=== PATIENT | female | born 1985 | race Caucasian/White ===

== ENCOUNTER 2021-05-04 08:56 | Outpatient (REF) | payer BC, SELFPAY ==
[2021-05-04 10:06] LABS: COVID-19 Test Negative (Negative)
== END 2021-05-04 08:57 | disposition home or self-care (01) ==
LOC: HO.LAB 08:56
PROVIDERS: Visit Provider Internal Medicine
DX: Z20.822 Contact with and (suspected) exposure to COVID-19 (principal)
CPT/HCPCS: 36415; 87635; C9803

== ENCOUNTER 2024-08-07 01:01 | Emergency (ER) | payer OTHER, SELFPAY ==
[2024-08-07 01:08] VITALS: BP 123/85; PULSE 73; RESP 18; TEMP 36.4; O2SAT 100; BMI 37.8
--- NOTE | 2024-08-07 01:49 | ED_ITS ---
HPI - Dental/Oral General Chief complaint: Dental/Oral Stated complaint: tooth ache Time Seen by Provider: 08/07/24 01:40 Source: patient Mode of arrival: ambulatory Limitations: no limitations History of Present Illness ED Provider: Dr. Ayana Wahl HPI Narrative: Patient comes to the emergency room complaining of dental pain in the maxillary aspect on the left. Patient states that she has a root canal pending in 2 days from now. Patient states that she has been taking ibuprofen, Tylenol and Augmentin for 3 days without any relief. Patient denies fever chills Related Data Previous Rx's ?Medication ?Instructions ?Recorded clindamycin HCl 150 mg capsule 150 mg PO TID 10 days #30 caps 08/07/24 ketorolac 10 mg tablet 10 mg PO Q8H #12 tabs 08/07/24 Allergies Allergy/AdvReac Type Severity Reaction Status Date / Time dicloxacillin [Dicloxacillin] Allergy Mild RASH Verified 08/07/24 01:10 Penicillins Allergy Mild RASH Verified 08/07/24 01:10 Review of Systems Review of Systems: Constitutional : No Weight loss, No Fever, No Chills, No Night Sweats, No Fatigue, No Malaise ENT/Mouth : complaining of dental pain of the left upper/ maxillary side. No Hearing loss, No Ear Pain, No Nasal Congestion, No Sinus Pain, No Hoarseness, No sore throat, No Rhinorrhea, No Swallowing Difficulty Eyes: No Eye Pain, No Swelling, No Redness, No Foreign Body, No Discharge, No Vision Changes Cardiovascular : No Chest Pain, No SOB, No Dyspnea on Exertion, No Orthopnea, No Edema, No Palpitations Respiratory : No Cough, No Sputum, No Wheezing, No Smoke Exposure, No Dyspnea Gastrointestinal : No Nausea, No Vomiting, No Diarrhea, No Constipation, No abdominal Pain, No Hematochezia, No Melena Genitourinary : no irregular bleeding, No Dysuria, No Urinary Frequency, No Hematuria, No Urinary Incontinence, No Urgency, No Flank Pain, No Urinary Flow Changes, No Hesitancy Musculoskeletal : No joint pain, No Myalgias, No Joint Swelling Skin : No Skin Lesions, No rash Neuro : No Weakness, No Numbness, No Paresthesias, No Loss of Consciousness, No Dizziness, No Headache Psych : No Anxiety/Panic, No Depression, No SI/HI/AH/VH, No Social Issues, Heme/Lymph: No Bruising, No Bleeding,No Lymphadenopathy Endocrine : No Polyuria, No Polydipsia, No Temperature Intolerance [facility] Social History Social History Advance Directives: No Advance Directives Information Provided: Yes Do you have a plan to hurt others: No Plan Physical Exam Vital Signs: Vital Signs: Last Vital Signs Temp 97.6 F 08/07/24 01:08 Pulse 73 08/07/24 01:08 Resp 18 08/07/24 01:08 BP 123/85 08/07/24 01:08 Pulse Ox 100 08/07/24 01:08 O2 Del Method Room Air 08/07/24 01:08 BMI result Body Mass Index 37.8 Const: Other: Appearance: Alert. Oriented X3. No acute distress. Eyes: Pupils equal, round and reactive to light. ENT: Pharynx normal. Poor dentition on the maxillary right and left side in the molars, no obvious abscesses, gingivitis noticed bilaterally Neck: Normal inspection. Neck supple. No lymph nodes noted. No crepitus CVS: Normal heart rate and rhythm. Pulses normal. Normal S1 and S2 Respiratory: No respiratory distress. Breath sounds normal. No Wheezing. No rales Abdomen: Soft and nontender. No rigidity. No distention. Skin: Skin warm and dry. Normal skin color. Normal skin turgor. Extremities: No lower extremity edema. No Lacerations. No Rash Neuro: Oriented X 3. No motor deficit. No sensory deficit. Moving all extremities. No slurred speech. CN 2 through 12 grossly intact Psych: calm, cooperative, normal affect Medical Decision Making Medical Decision Making MDM Narrative: patient's antibiotics were switched to clindamycin and per patient's request a prescription that does not contain narcotics. First dose given IM ketorolac in the ED. First dose of clindamycin given. As mentioned above, patient has an appointment pending in 2 days Differential Diagnosis Differential Diagnoses: The differential diagnosis associated with the presentation includes ( dental abscess, caries, gingivitis) Discharge Plan Discharge Clinical Impression: Toothache Patient Disposition: Home, Self-Care Instructions: Toothache (ED) Additional Instructions: Please follow-up with your primary care physician tomorrow. If you have any worsening or new symptoms, please return to the emergency room or call 911 Prescriptions: New ketorolac 10 mg tablet 10 mg PO Q8H Qty: 12 0RF Rx Instructions: do not use this medication with NSAIDs, only Tylenol if needed clindamycin HCl 150 mg capsule 150 mg PO TID 10 Days Qty: 30 0RF Stand Alone Forms: Work/School Release Print Language: Persian
[2024-08-07 02:05] VITALS: BP 152/90; PULSE 82; RESP 16; TEMP 36.8; O2SAT 96
[2024-08-07] MEDS: Ketorolac Tromethamine 60 MG/2 ML VIAL IM (02:09)
--- NOTE | 2024-08-07 02:41 | PC.NURSE ---
Clindamycin 150 mg PO is not available. DR. Wahl notified. Rx for Clidamycin faxed to 24 hr [facility] on [facility] in [place]. Patient to sisal picker antibiotic from the pharmacy and self medicated herself. Patient verbalized understanding and in agreement.
[2024-08-07 02:48] VITALS: BP 143/79; PULSE 83; RESP 16; TEMP 36.9; O2SAT 97
== END 2024-08-07 02:48 | disposition home or self-care (01) ==
PROVIDERS: Emergency Provider Emergency Medicine; PCP Internal Medicine
DX: K08.89 Other specified disorders of teeth and supporting structures (principal)
CPT/HCPCS: 96372; 99284; J1885

== ENCOUNTER 2024-09-23 18:18 | Emergency (ER) | payer OTHER, SELFPAY ==
--- NOTE | ~2024-09-23 | CT_ITS ---
CLINICAL HISTORY: left back LLQ pain R O kidney stone v diverti CT abdomen and pelvis without contrast Comparison: None Findings: No consolidation or effusion. Unremarkable gallbladder and solid organs. No urolithiasis or hydronephrosis. No bowel obstruction, pneumoperitoneum, or pneumatosis. Thick-walled cervix with fluid in the endocervical canal. IUD in the endometrial cavity. Urinary bladder is within normal limits. No acute fracture. IMPRESSION: 1. No hydronephrosis or urolithiasis. No evidence of diverticulitis. 2. Thick-walled cervix with fluid in the endocervical canal. This document has been electronically signed by: Dennise Ennis MD on 09/23/2024 20:05:46
[2024-09-23 18:27] VITALS: BP 129/88; PULSE 82; RESP 18; TEMP 36.7; O2SAT 100; BMI 37.4
--- NOTE | 2024-09-23 18:27 | ED_ITS ---
HPI - Back Pain/Injury General Chief Complaint: General Medical Stated Complaint: lwr back pain travels to the front Time Seen by Provider: 09/23/24 19:04 Source: patient Mode of arrival: ambulatory Limitations: no limitations History of Present Illness ED Provider: DR. Myers HPI Narrative: 39-year-old female came in for evaluation of left lower back pain radiating to the left groin and suprapubic area started 3-4 days ago, pain is constant, no clear aggravating factor, no clear relieving factor, no dysuria, no frequency urination, no hematuria, sexually not active with no vaginal discharge or bleed, no chance of today, last bowel movement was this morning and was normal, passing flatus, only past surgical history is significant for . No fever, no chills, no nausea, no vomiting, never history of IV drug abuse, Related Data Previous Rx's ?Medication ?Instructions ?Recorded clindamycin HCl 150 mg capsule 150 mg PO TID 10 days #30 caps 08/07/24 ketorolac 10 mg tablet 10 mg PO Q8H #12 tabs 08/07/24 Allergies Allergy/AdvReac Type Severity Reaction Status Date / Time dicloxacillin [Dicloxacillin] Allergy Mild RASH Verified 09/23/24 18:28 Penicillins Allergy Mild RASH Verified 09/23/24 18:28 Review of Systems 2 Review of Systems: all other systems are reviewed and are negative Constitutional: Reports as per HPI and Reports no additional constitutional complaints Eyes: Reports as per HPI and Reports no additional eye complaints Reports system reviewed and no additional complaints, except as documented Cardiovascular: Reports as per HPI and Reports no additional cardiovascular complaints Respiratory: Reports as per HPI and Reports no additional respiratory complaints Gastrointestinal: Reports as per HPI and Reports no additional gastrointestinal complaints Genitourinary: Reports no additional female genitourinary complaints Musculoskeletal: Reports no additional musculoskeletal complaints Skin/Breast: Reports system reviewed and no additional complaints, except as docu Psychiatric: Reports no additional psychiatric complaints Endocrine: Reports no additional endocrine complaints Hematologic/Lymphatic: Reports no additional hematologic/lymphatic complaints Allergic/Immunologic: Reports no additional allergic/immunologic complaints Reports system reviewed and no additional complaints, except as documented and Reports Abnormal speech present PMFSH Social History Social History Alcohol intake: current Alcohol intake frequency: does not drink Alcohol type: hard liquor Smoked in Last 30 Days: No Use of substances other than those prescribed or required for medical reasons: No Advance Directives: No Advance Directives Information Provided: Yes Do you have a plan to hurt others: No Plan Physical Exam 2 Vital Signs: Vital Signs: Last Vital Signs Temp 98.1 F 09/23/24 18:27 Pulse 82 09/23/24 18:27 Resp 18 09/23/24 18:27 BP 129/88 09/23/24 18:27 Pulse Ox 100 09/23/24 18:27 O2 Del Method Room Air 09/23/24 18:27 BMI result Body Mass Index 37.4 Vital signs have been reviewed and appear to be correct. Blood pressure elevated. Heart rate normal. Respiratory rate normal. Temperature normal. Oxygen saturation normal. Appearance: Alert. Oriented X3. No acute distress. Head: Normal external exam. Normocephalic. Atraumatic. No Miller signs noted. No raccoon eyes noted Eyes: PERRLA. EOMI. Conjunctiva and sclera normal. Eyelids normal. ENT: TM's Normal. Pharynx normal. Uvula midline. Moist mucous membranes. No trismus noted. No drooling noted. No muffled voice noted. Neck: Normal inspection. Neck supple. FROM. No adenopathy. Thyroid Normal. No meningeal signs. No neck mass noted. CVS: Normal heart rate and rhythm. Heart sound normal. No murmurs noted. Pulses normal throughout. Respiratory: No respiratory distress. Painless inspiration. Breath sounds normal. No wheezes/rales/rhonchi noted. Chest nontender. No accessory muscle usage noted or decreased air movement noted. Abdomen: Soft and nontender. Bowel sounds normal in all 4 quadrants. No distention noted. No organomegaly noted. No visible injury noted. Back: No CVA tenderness. Full range of motion noted. Skin: Skin warm and dry. Normal skin color. Normal skin turgor. No rashes/lesions/lacerations noted. Extremities: No lower extremity edema. Extremities exhibit normal range of motion. Extremities nontender. Neuro: Oriented X 3. Cranial nerve exam: II-XII are grossly intact No motor deficit. No sensory deficit. Reflexes normal. Course Course Course Narrative: This is a Rapid Medical Exam performed in triage by Shea Montgomery PA-C. Full HPI, ROS and PE to be performed by primary ED provider. 39 yo F presenting to the ED c/o left low back pain radiating to LLQ x1 wk . Sent in by . +urinary frequency. denies dysuria, N/V PE: abdomen soft nontender, no rebound or guarding Plan: labs, UA Reevaluation(s) Reevaluation #1: back pain and abdominal pain, unremarkable labs, CT abdomen pelvis is unremarkable. Reassure, NSAIDs if needed for pain. Time: 20:24 Medications Administered Discontinued Medications Generic Name Dose Route Start Last Admin Trade Name Freq PRN Reason Stop Dose Admin Ketorolac Tromethamine 15 mg 09/23/24 19:11 09/23/24 19:29 Ketorolac Tromethamine 15 Mg/Ml Vial IVPUSH 09/23/24 19:12 15 mg ONCE ONE Administration Morphine Sulfate 1 mg 09/23/24 19:11 09/23/24 19:29 Morphine Sulfate 2 Mg/Ml Cartridge IVPUSH 09/23/24 19:12 Not Given ONCE ONE Protocol Medical Decision Making Differential Diagnosis Differential Diagnoses: The differential diagnosis associated with the presentation includes ( Colitis, diverticulitis, pancreatitis, kidney stone, UTI, , el) Admission/Observation Consideration of admission/observation: Escalation of care including admission/observation considered Lab Data MDM Lab Attestation statement: I reviewed the patient's lab results. 09/23/24 18:37 09/23/24 18:37 Labs: Lab Results 09/23/24 09/23/24 Range/Units 18:37 19:03 WBC 10.4 (4.8-10.8) X10*3/uL RBC 4.72 (4.20-5.50) X10*6/uL Hgb 13.4 (12.0-16.0) g/dl Hct 39.8 (37.0-47.0) % MCV 84.3 (80.0-98.0) fL MCH 28.4 (27.0-33.0) pg MCHC 33.7 (31.0-35.0) g/dl RDW 13.2 (11.0-16.0) % Plt Count 284 (160-400) X10*3/uL MPV 10.8 (9.4-12.3) fL Immature Gran % (Auto) 0.4 (0.0-0.4) % Neut % (Auto) 67.0 (45-73) % Lymph % (Auto) 24.5 (20-40) % [place] % (Auto) 6.6 (2-11) % Eos % (Auto) 1.2 (0-4) % Baso % (Auto) 0.3 (0-2) % Lymph # (Auto) 2.6 (1.2-4.9) X10*3/uL [place] # (Auto) 0.7 (0.1-1.2) X10*3/uL Eos # (Auto) 0.1 (0.0-0.4) X10*3/uL Baso # (Auto) 0.0 (0.0-0.2) X10*3/uL Abs Immat Gran (auto) 0.04 H (0.00-0.03) X10*3/uL Absolute Neuts (auto) 7.0 (2.0-8.3) x10*3/uL Absolute Nucleated RBC 0.000 (0.0-0.012) X10*3/uL Nucleated RBC % (auto) 0.0 (0.0-0.2) /100WBC Sodium 141 (135-145) mmol/L Potassium 3.6 (3.3-5.1) mmol/L Chloride 107 (96-108) mmol/L Carbon Dioxide 27 (22-29) mmol/L Anion Gap 11 L (12-20) BUN 14 (9-16) mg/dL Creatinine 0.76 (0.5-1.4) mg/dL Estim Creat Clear Calc 114.7 Estimated GFR > 60 Random Glucose 104 (60-115) mg/dL Calcium 9.4 (8.4-10.2) mg/dL Magnesium 2.1 (1.6-2.6) mg/dL Total Bilirubin 0.6 (0.0-1.0) mg/dL Direct Bilirubin 0.3 (0.0-0.5) mg/dL AST 25 (5-31) U/L ALT 52 H (0-31) U/L Alkaline Phosphatase 99 (39-117) U/L Total Protein 7.3 (6.5-8.0) g/dL Albumin 4.5 (3.5-5.0) g/dL Urine Color Yellow Urine Appearance Clear Urine pH 5.5 (5.0-9.0) Ur Specific [place] 1.015 (1.005-1.025) Urine Protein Negative (Neg-Trace) mg/dL Urine Glucose (UA) Negative (Negative) mg/dL Urine Ketones Negative (Negative) mg/dL Urine Blood Negative (Negative) Urine Nitrite Negative (Negative) Ur Leukocyte Esterase Negative (Negative) Urine Test NEGATIVE (NEGATIVE) Independent Interpretation I performed an independent interpretation of an: CT Scan ( Abdomen pelvis:1. No hydronephrosis or urolithiasis. No evidence of diverticulitis. 2. Thick-walled cervix with fluid in the endocervical canal.) Radiology Impression Discussion of test interpretation with radiology: I have reviewed the radiologist's reading. Discharge Plan Discharge Clinical Impression: Abdominal pain Patient Disposition: Home, Self-Care Instructions: Abdominal Pain (ED) Prescriptions: No Action ketorolac 10 mg tablet 10 mg PO Q8H Qty: 12 0RF Rx Instructions: do not use this medication with NSAIDs, only Tylenol if needed clindamycin HCl 150 mg capsule 150 mg PO TID 10 Days Qty: 30 0RF Referrals: Naomi Quintana MD [Primary Care Provider] - Print Language: Upper Sorbian
--- OUTSIDE RECORDS SUMMARY | 2024-09-23 18:41 | XMS_ITS | Encounter Summary ---
Author Organization [facility] Address [address] [place] [address] Care Team Providers Care Electrician Supervisor Name Role Phone Naomi Quintana MD Primary Care Provider [phone] Reason for Visit * Reason Onset Date Comments Lilian: Lab results 08/31/2024 Encounter Details Date Type Department Care Team ([facility] st Contact Info) Description 08/31/2024 Telephone Internal Medicine - [place] [address] [place] [phone] Naomi Quintana MD [address] [place] [phone] Lilian: Lab results Social History Tobacco Use Types Packs/Day Years Used Date Smoking Tobacco: Never Smokeless Tobacco: Never Comments Unknown Sex and Gender Information Value Date Recorded Sex Assigned at Not on file Legal Sex Female 11:46 PM EST Gender Identity Not on file Sexual Orientation Not on file documented as of this encounter Progress Notes * Kyle Daniel MA - 08/31/2024 1:44 PM EDT Will need to discuss results with ordering provider. * Adilene Rogers - 08/31/2024 11:48 AM EDT Patient called and requested a call back to review the lab results that was ordered by weight management. Please advise Cb# [phone] documented in this encounter Plan of Treatment Upcoming Encounters Date Type Department Care Team (Late st Contact Info) Description 09/24/2024 1:30 PM EDT Office Visit Internal Medicine [facility] [address] [facility] [address] [place] [phone] Jesse Vicente MD [address] [address] 10/12/2024 2:00 PM EDT Office Visit Internal Medicine [facility] [address] [phone] Naomi Quintana MD [address] [phone] documented as of this encounter Visit Diagnoses Not on filedocumented in this encounter Care Teams Electrician Supervisor Relationship Specialty Start Date End Date Naomi Quintana MD [address] [phone] PCP - General Internal Medicine 07/24/24 documented as of this encounter
--- OUTSIDE RECORDS SUMMARY | 2024-09-23 18:41 | XMS_ITS | Encounter Summary ---
Author Organization [facility] Address [address] [place] [address] Care Team Providers Care Scrub Woman Name Role Phone Naomi Quintana MD Primary Care Provider [phone] Encounter Details Date Type Department Care Team (Late Contact Info) Description 04/23/2024 Lab Requisition [facility] - Main Lab [address] [facility] [place] [address] Vazquez Conde MD [facility] [facility] [place] [phone] Psoriasis vulgaris Social History Tobacco Use Types Packs/Day Years Used Date Smoking Tobacco: Never Smokeless Tobacco: Never Comments Unknown Sex and Gender Information Value Date Recorded Sex Assigned at Not on file Legal Sex Female 11:46 PM EST Gender Identity Not on file Sexual Orientation Not on file documented as of this encounter Plan of Treatment Upcoming Encounters Date Type Department Care Team (Late Contact Info) Description 09/24/2024 1:30 PM EDT Office Visit Internal Medicine [facility] [address] [phone] Jesse Vicente MD [address] [address] 10/12/2024 2:00 PM EDT Office Visit Internal Medicine [facility] [address] [facility] [address] [place] [phone] Naomi Quintana MD [address] [phone] documented as of this encounter Procedures Procedure Name Priority Date/Time Associated Diagnosis Comments CULTURE FUNGUS, SKIN HAIR OR NAILS Routine 04/23/2024 11:24 AM EST Psoriasis vulgaris documented in this encounter Results * Culture fungus, skin hair or nails (04/23/2024 11:24 AM EST) Culture, Fungus Negative for Fungus after 4 Weeks 05/21/2024 2:06 PM EST [facility] Skin 04/23/2024 11:2 4 AM EST 04/23/2024 5:58 PM EST Vazquez Conde MD LAB MICROBIOLOGY - G ENERAL ORDERABLES Final Result [facility] [address] [place] [address], documented in this encounter Visit Diagnoses Diagnosis Psoriasis vulgaris Other psoriasis documented in this encounter Care Teams Scrub Woman Relationship Specialty Start Date End Date Naomi Quintana MD [address] [phone] PCP - General Internal Medicine 07/24/24 documented as of this encounter
--- OUTSIDE RECORDS SUMMARY | 2024-09-23 18:41 | XMS_ITS | Encounter Summary ---
Author Organization [facility] Address [address] [place] [address] Care Team Providers Care Corporate Relations Manager Name Role Phone Naomi Quintana MD Primary Care Provider [phone] Encounter Details Date Type Department Care Team ([facility] st Contact Info) Description 09/23/2024 Telephone Internal Medicine - [place] [address] [facility] [address] [place] [address] Naomi Quintana MD [address] [facility] [address] [place] [address] Social History Tobacco Use Types Packs/Day Years Used Date Smoking Tobacco: Never Smokeless Tobacco: Never Comments Unknown Sex and Gender Information Value Date Recorded Sex Assigned at Not on file Legal Sex Female 11:46 PM EST Gender Identity Not on file Sexual Orientation Not on file documented as of this encounter Progress Notes * Betsey Jewell RN - 09/23/2024 4:15 PM EDT Call to pt # [phone], spoke w/ her. She tells me that the [facility] recommended she get an ultrasound and that if PCP was not able to schedule her for a US she should go to the hospital. I told her I can book her for an appt tomorrow, but she would not be able to get ultrasound tomorrow. It needs to go through insurance, get scheduled, etc. If she is having severe pain she needs to go to the ER and they are able to do the testing much faster. Pt states understanding, wants appt tomorrow. I booked her for tomorrow, told her to go to ER in meantime as recommended by the center and if appt needs to be pushed back if she is still in the hospital, call us back to reschedule. Pt states understanding, does not seem she is going to the ER. * Soo Palencia - 09/23/2024 4:07 PM EDT Went to urgent care today in [place] for back pain - lower back and uterine area. Thought it was sciatic nerve but thinks its something else, pain is at a 9/10. suggested she go to ER, but wants to ask PCP if shecan request imaging first? For her lower back and lower abdomen? Wants suggestions from nurse on what to do in the meantime too? Please cb with update at [phone] documented in this encounter Plan of Treatment Upcoming Encounters Date Type Department Care Team (Late st Contact Info) Description 09/24/2024 1:30 PM EDT Office Visit Internal Medicine [facility] [address] [phone] Jesse Vicente MD [address] [phone] 10/12/2024 2:00 PM EDT Office Visit Internal Medicine [facility] [address] [facility] [facility] [address] [place] [phone] Naomi Quintana MD [address] [phone] documented as of this encounter Visit Diagnoses Not on filedocumented in this encounter Care Teams Corporate Relations Manager Relationship Specialty Start Date End Date Naomi Quintana MD [address] [phone] PCP - General Internal Medicine 07/24/24 documented as of this encounter
--- OUTSIDE RECORDS SUMMARY | 2024-09-23 18:41 | XMS_ITS | Clinical Summary ---
Author Organization [employer] [facility] Address [address] [place] [address] Care Team Providers Care Senior Cobol Developer Name Role Phone Unavailable Primary Care Provider Unavailabl e Social History Tobacco Use Types Packs/Day Years Used Date Smoking Tobacco: Never Assessed Sex and Gender Information Value Date Recorded Sex Assigned at Female 08/04/2019 10:06 AM EDT Gender Identity Not on file Sexual Orientation Not on file Plan of Treatment Not on file
--- OUTSIDE RECORDS SUMMARY | 2024-09-23 18:41 | XMS_ITS | Clinical Summary ---
Author Organization [address] Address [address] [place] [phone] Phone Care Team Providers Care Medical Office Asst Name Role Phone Naomi Quintaan MD Primary Care Provider [phone] Encounters Date Type Department Care Team Description 09/23/2024 Telephone Internal [facility] [address] [facility] [address] [place] [phone] Naomi Quintana MD 08/31/2024 Telephone Internal Medicine [facility] [address] [facility] [address] [place] [phone] Naomi Quintana MD [place]: Lab results from Last 3 Months Surgical History Surgery Date Site/Laterality Comments SECTION PROCEDURE: HISTORICAL DELIVERY Medical History Medical History Date Comments Acne 12/25/2014 DX:Acne Depression 09/15/2011 DX:Depression Hyperhidrosis 07/28/2013 DX:Hyperhidrosis Hypertension 08/09/2015 DX:Hypertension Migraine headache 07/28/2013 DX:Migraine he adache Polycystic ovarian syndrome 11/28/2010 DX:P olycystic ovarian syndrome Morbid obesity with BMI of 4 0.0-44.9, adult (CMS/HCC V24, CMS/HCC V28) DX:Morbid obesity wit h BMI of 40.0-44.9, adult ([facility]) Social History Tobacco Use Types Packs/Day Years Used Date Smoking Tobacco: Never Smokeless Tobacco: Never Comments Unknown Sex and Gender Information Value Date Recorded Sex Assigned at Not on file Legal Sex Female 11:46 PM EST Gender Identity Not on file Sexual Orientation Not on file Obstetrics History Last Filed Vital Signs Vital Sign Reading Time Taken Comments Blood Pressure 132/80 06/05/2023 1:36 PM EST Sit ting L Arm Pulse 86 06/05/2023 1:36 PM EST Temperature - - Respiratory Rate - - Oxygen Saturation - - Inhaled Oxygen Concentration - - Weight 114 kg (252 lb) 06/05/2023 1:36 PM EST Height 162.6 cm (5' 4 ) 06/05/2023 1:36 PM EST Body Mass Index 43.26 06/05/2023 1:36 PM EST Plan of Treatment Upcoming Encounters Date Type Department Care Team (Late st Contact Info) Description 09/24/2024 1:30 PM EDT Office Visit Internal Medicine - [place] [address] [phone] Jesse Vicente MD [address] [phone] 10/12/2024 2:00 PM EDT Office Visit Internal Medicine [facility] [address] [phone] Naomi Quintana MD [address] [phone] Health Maintenance Due Date Last Done Comments Hepatitis B Vaccines (1 of 3 - 19+ 3-dose series) 2005 Cervical Cancer Screening: P ap Smear 2007 Depression Screening 04/14/2022 HIV Screening 04/14/2022 Social Influencers of Health Screening 04/14/2022 DTaP,Tdap,and Td Vaccines (2 - Td or Tdap) 11/12/2022 11/12/2012 COVID-19 Vaccine (3 - 2023-2 5 season) 2024 04/01/2023, 03/31/2022 Influenza Vaccine (Season Ended) 2025 01/15/2020 Cholesterol Screening (Lipid Panel) 07/24/2029 07/24/2024 Hepatitis C Screening Completed 07/24/2024 HIB Vaccines Aged Out No longer eligi ble based on patient's age to complete this topic HPV Vaccines Aged Out No longer eligi ble based on patient's age to complete this topic Hepatitis A Vaccines Aged Out No long er eligible based on patient's age to complete this topic IPV Vaccines Aged Out No longer eligi ble based on patient's age to complete this topic MMR Vaccines Aged Out No longer eligi ble based on patient's age to complete this topic Meningococcal ACWY Vaccine Aged Out N o longer eligible based on patient's age to complete this topic Meningococcal B Vaccine Aged Out No l onger eligible based on patient's age to complete this topic Pneumococcal Vaccine: Pediatrics (0 to 5 Years) and At-Risk Patients (6 to 64 Years) Aged Out No longer eligible b ased on patient's age to complete this topic RSV Immunization Patients Under 20 months Aged Out No longer eligible b ased on patient's age to complete this topic Varicella Vaccines Aged Out No longer eligible based on patient's age to complete this topic Procedures Procedure Name Priority Date/Time Associated Diagnosis Comments INTERFERON GAMMA INTERPRETATION Routine 07/24/2024 8:35 AM EDT Routine general medical examination at a health care facility Screening for lipoid disorders Screening for diabetes mellitus Avitaminosis D Myxedema heart disease Psoriasis vulgaris CBC WITH AUTO DIFFERENTIAL Routine 07/24/2024 8:35 AM EDT Routine general medical examination at a health care facility Screening for lipoid disorders Screening for diabetes mellitus Avitaminosis D Myxedema heart disease THYROID STIMULATING HORMONE WITH REFLEX TO FREE T4 AND FREE T3 Routine 07/24/2024 8:35 AM EDT Routine general medical examination at a health care facility Screening for lipoid disorders Screening for diabetes mellitus Avitaminosis D Myxedema heart disease VITAMIN D 25 HYDROXY Routine 07/24/2024 8:35 AM EDT Routine general medical examination at a health care facility Screening for lipoid disorders Screening for diabetes mellitus Avitaminosis D Myxedema heart disease HEMOGLOBIN A1C Routine 07/24/2024 8:35 AM EDT Routine general medical examination at a health care facility Screening for lipoid disorders Screening for diabetes mellitus Avitaminosis D Myxedema heart disease LIPID PANEL WITH REFLEX TO DIRECT LDL Routine 07/24/2024 8:35 AM EDT Routine general medical examination at a health care facility Screening for lipoid disorders Screening for diabetes mellitus Avitaminosis D Myxedema heart disease COMPREHENSIVE METABOLIC PANEL Routine 07/24/2024 8:35 AM EDT Routine general medical examination at a health care facility Screening for lipoid disorders Screening for diabetes mellitus Avitaminosis D Myxedema heart disease CBC AND DIFFERENTIAL Routine 07/24/2024 8:35 AM EDT Routine general medical examination at a health care facility Screening for lipoid disorders Screening for diabetes mellitus Avitaminosis D Myxedema heart disease INTERFERON GAMMA ANTIGEN 2 Routine 07/24/2024 8:35 AM EDT Routine general medical examination at a health care facility Screening for lipoid disorders Screening for diabetes mellitus Avitaminosis D Myxedema heart disease Psoriasis vulgaris INTERFERON GAMMA ANTIGEN 1 Routine 07/24/2024 8:35 AM EDT Routine general medical examination at a health care facility Screening for lipoid disorders Screening for diabetes mellitus Avitaminosis D Myxedema heart disease Psoriasis vulgaris INTERFERON GAMMA MITOGEN Routine 07/24/2024 8:35 AM EDT Routine general medical examination at a health care facility Screening for lipoid disorders Screening for diabetes mellitus Avitaminosis D Myxedema heart disease Psoriasis vulgaris INTERFERON GAMMA NIL Routine 07/24/2024 8:35 AM EDT Routine general medical examination at a health care facility Screening for lipoid disorders Screening for diabetes mellitus Avitaminosis D Myxedema heart disease Psoriasis vulgaris INTERFERON GAMMA FOR TB, QUALITATIVE Routine 07/24/2024 8:35 AM EDT Routine general medical examination at a health care facility Screening for lipoid disorders Screening for diabetes mellitus Avitaminosis D Myxedema heart disease Psoriasis vulgaris HEPATITIS C ANTIBODY Routine 07/24/2024 8:35 AM EDT Routine general medical examination at a health care facility Screening for lipoid disorders Screening for diabetes mellitus Avitaminosis D Myxedema heart disease Psoriasis vulgaris HEPATITIS B SURFACE ANTIGEN WITH CONFIRMATION Routine 07/24/2024 8:35 AM EDT Routine general medical examination at a health care facility Screening for lipoid disorders Screening for diabetes mellitus Avitaminosis D Myxedema heart disease Psoriasis vulgaris HEPATITIS B SURFACE ANTIBODY Routine 07/24/2024 8:35 AM EDT Routine general medical examination at a health care facility Screening for lipoid disorders Screening for diabetes mellitus Avitaminosis D Myxedema heart disease Psoriasis vulgaris HEPATITIS B CORE ANTIBODY, TOTAL Routine 07/24/2024 8:35 AM EDT Routine general medical examination at a health care facility Screening for lipoid disorders Screening for diabetes mellitus Avitaminosis D Myxedema heart disease Psoriasis vulgaris HEPATIC FUNCTION PANEL Routine 8:35 AM EDT Routine general medical examination at a health care facility Screening for lipoid disorders Screening for diabetes mellitus Avitaminosis D Myxedema heart disease Psoriasis vulgaris from Last 3 Months Results * Hepatitis C antibody (07/24/2024 8:35 AM EDT) Pathologist [facility] Hepatitis C Antibody Negative Negative LAB CHEMISTRY METHOD 07/24/2024 10:40 AM EDT [facility] Blood Venous blood specimen / Unknown Venipuncture / Unknown 07/24/2024 8:35 AM EDT 07/24/2024 9:10 AM EDT us Vazquez Conde MD LAB BLOOD ORDERABLES Final Result Performing Organization Address [facility]/ZIP Co de Phone Number [facility] [address] [place] [address], * Interferon gamma interpretation (07/24/2024 8:35 AM EDT) Pathologist [facility] Quantiferon Plus Interpretation Negative Negative LAB CHEMISTRY METHOD 07/25/2024 10:17 AM EDT [facility] Blood Venous blood specimen / Unknown Venipuncture / Unknown 07/24/2024 8:35 AM EDT 07/24/2024 9:05 AM EDT us Vazquez Conde MD LAB BLOOD ORDERABLES Final Result [facility] [address] [place] [address], [place] [phone] * Interferon gamma antigen 2 (07/24/2024 8:35 AM EDT) Blood Venous blood specimen / Unknown Venipuncture / Unknown 07/24/2024 8:35 AM EDT 07/24/2024 9:05 AM EDT Vazquez Conde MD LAB BLOOD ORDERABLES Final Result Performing Organization Address City/[facility]/ZIP Co de Phone Number [facility] [address] [place] [address], [place] [phone] * Inteferon gamma antigen 1 (07/24/2024 8:35 AM EDT) Blood Venous blood specimen / Unknown Venipuncture / Unknown 07/24/2024 8:35 AM EDT 07/24/2024 9:05 AM EDT Vazquez Conde MD LAB BLOOD ORDERABLES Final Result Performing Organization Address City/[facility]/ZIP Co de Phone Number [facility] [address] [place] [address], [place] [phone] * Interferon gamma mitogen (07/24/2024 8:35 AM EDT) Blood Venous blood specimen / Unknown Venipuncture / Unknown 07/24/2024 8:35 AM EDT 07/24/2024 9:05 AM EDT Vazquez Conde MD LAB BLOOD ORDERABLES Final Result [facility] [address] [place] [address], [place] [phone] * Interferon gamma NIL (07/24/2024 8:35 AM EDT) Blood Venous blood specimen / Unknown Venipuncture / Unknown 07/24/2024 8:35 AM EDT 07/24/2024 9:05 AM EDT Vazquez Conde MD LAB BLOOD ORDERABLES Final Result Performing Organization Address City/[facility]/ZIP Co de Phone Number [facility] [address] [place] [address], [place] [phone] * Hepatitis B surface antigen with reflex to confirmation (07/24/2024 8:35 AM EDT) Hepatitis B Surface Ag Negative Negative LAB CHEMISTRY METHOD 07/24/2024 10:12 AM EDT [facility] Blood Venous blood specimen / Unknown Venipuncture / Unknown 07/24/2024 8:35 AM EDT 07/24/2024 9:10 AM EDT Narrative [facility] - 07/24/2024 10:12 AM EDT Over the counter supplements containing high doses of biotin may interfere with this assay. ??If interference is suspected, patients shoud be retested after refraining from biotin supplements for 72 hours. Vazquez Conde MD LAB BLOOD ORDERABLES Final Result Performing Organization Address [facility]/ZIP Co de Phone Number [facility] [address] [place] [address], [place] [phone] * Thyroid stimulating hormone with reflex to free t4 and free t3 (07/24/2024 8:35 AM EDT) Pathologist [facility] TSH 1.43 0.40 - 4.00 mcIU/mL LAB CHEMISTRY METHOD 07/24/2024 10:05 AM EDT [facility] Blood Venous blood specimen / Unknown Venipuncture / Unknown 07/24/2024 8:35 AM EDT 07/24/2024 9:10 AM EDT Angie ALEJO LAB BLOOD ORDERABLES Fin al Result [facility] [address] [place] [address], [place] [phone] * Lipid panel with reflex to direct LDL (07/24/2024 8:35 AM EDT) Pathologist [facility] Cholesterol 144 0 - 200 mg/dL LAB CHEMISTRY METHOD 07/24/2024 10:26 AM EDT [facility] Triglycerides 66 0 - 150 mg/dL LAB CHEMISTRY METHOD 07/24/2024 10:26 AM EDT [facility] HDL 47 >=40 mg/dL LAB CHEMISTRY METHOD 07/24/2024 10:26 AM EDT [facility] LDL Calculated 84 0 - 100 mg/dL LAB CHEMISTRY METHOD 07/24/2024 10:26 AM EDT [facility] VLDL Cholesterol [place] 13.2 mg/dL LAB CHEMISTRY METHOD 07/24/2024 10:26 AM EDT [facility] Non HDL Chol. (LDL+VLDL) 97 <145 mg/dL LAB CHEMISTRY METHOD 07/24/2024 10:26 AM EDT [facility] Chol/HDL Ratio 3.1 0.0 - 4.4 LAB CHEMISTRY METHOD 07/24/2024 10:26 AM T [facility] Blood Venous blood specimen / Unknown Venipuncture / Unknown 07/24/2024 8:35 AM EDT 07/24/2024 9:10 AM EDT Angie ALEJO LAB BLOOD ORDERABLES Fin al Result [facility] [address] [place] [address], [place] [phone] * (ABNORMAL) CBC auto differential (07/24/2024 8:35 AM EDT) Pathologist [facility] WBC 7.8 4.8 - 10.8 K/mcL LAB HEMETOLOGY METHOD 07/24/2024 9:24 AM EDT [facility] RBC 4.90(H) 3.80 - 4.80 M/mcL LAB HEMETOLOGY METHOD 07/24/2024 9:24 AM [facility] Hemoglobin 13.7 11.5 - 16.0 g/dL LAB HEMETOLOGY METHOD 07/24/2024 9:24 AM [facility] Hematocrit 42.5 35.0 - 47.0 % LAB HEMETOLOGY METHOD 07/24/2024 9:24 AM [facility] MCV 87.6 79.0 - 98.0 FL LAB HEMETOLOGY METHOD 07/24/2024 9:24 AM [facility] MCH 28.2 27.0 - 32.0 pcg LAB HEMETOLOGY METHOD 07/24/2024 9:24 AM [facility] MCHC 32.2 32.0 - 37.0 g/dL LAB HEMETOLOGY METHOD 07/24/2024 9:24 AM [facility] RDW 13.2 11.0 - 15.0 % LAB HEMETOLOGY METHOD 07/24/2024 9:24 AM [facility] Platelets 269 130 - 400 K/mcL LAB HEMETOLOGY METHOD 07/24/2024 9:24 AM [facility] MPV 11.8(H) 7.0 - 11.0 FL LAB HEMETOLOGY METHOD 07/24/2024 9:24 AM [facility] NRBC 0.0 <1.0 % LAB HEMETOLOGY METHOD 07/24/2024 9:24 AM [facility] NRBC Absolute 0.00 <0.10 K/mcL LAB HEMETOLOGY METHOD 07/24/2024 9:24 AM [facility] Neutrophils Relative 59.5 % LAB HEMETOLOGY METHOD 07/24/2024 9:24 AM [facility] Lymphocytes Relative 27.2 % LAB HEMETOLOGY METHOD 07/24/2024 9:24 AM T [facility] Monocytes Relative 10.3 % LAB HEMETOLOGY METHOD 07/24/2024 9:24 AM [facility] Eosinophils Relative 2.2 % LAB HEMETOLOGY METHOD 07/24/2024 9:24 AM [facility] Basophils Relative 0.5 % LAB HEMETOLOGY METHOD 07/24/2024 9:24 AM [facility] Immature Granulocytes Relative 0.3 % LAB HEMETOLOGY METHOD 07/24/2024 9:24 AM [facility] Neutrophils Absolute 4.61 1.50 - 7.00 K/mcL LAB HEMETOLOGY METHOD 07/24/2024 9:24 AM [facility] Lymphocytes Absolute 2.11 1.00 - 5.00 K/mcL LAB HEMETOLOGY METHOD 07/24/2024 9:24 AM [facility] Monocytes Absolute 0.80 0.20 - 1.00 K/mcL LAB HEMETOLOGY METHOD 07/24/2024 9:24 AM [facility] Eosinophils Absolute 0.17 0.00 - 0.50 K/mcL LAB HEMETOLOGY METHOD 07/24/2024 9:24 AM [facility] Basophils Absolute 0.04 0.00 - 0.20 K/mcL LAB HEMETOLOGY METHOD 07/24/2024 9:24 AM [facility] Immature Granulocytes Absolute 0.02 0.00 - 0.03 K/mcL LAB HEMETOLOGY METHOD 07/24/2024 9:24 AM [facility] Blood Venous blood specimen / Unknown Venipuncture / Unknown 07/24/2024 8:35 AM EDT 07/24/2024 9:11 AM EDT us Angie ALEJO LAB BLOOD ORDERABLES Fin al Result Performing Organization Address [facility]/ZIP Co de Phone Number [facility] [address] [place] [address], [place] [phone] * Hepatitis B core antibody, total (07/24/2024 8:35 AM EDT) [facility] Core Total Ab Negative Negative LAB CHEMISTRY METHOD 07/24/2024 10:41 AM EDT [facility] Blood Venous blood specimen / Unknown Venipuncture / Unknown 07/24/2024 8:35 AM EDT 07/24/2024 9:10 AM EDT Vazquez Conde MD LAB BLOOD ORDERABLES Final Result Performing Organization Address [facility] Co de Phone Number [facility] [address] [place] [address], [place] [phone] * (ABNORMAL) Vitamin D 25 hydroxy (07/24/2024 8:35 AM EDT) [facility] Vit D, 25-Hydroxy 13.4(L) 30.0 - 80.0 ng/mL LAB CHEMISTRY METHOD 07/24/2024 10:05 AM EDT [facility] Blood Venous blood specimen / Unknown Venipuncture / Unknown 07/24/2024 8:35 AM EDT 07/24/2024 9:10 AM EDT Angie ALEJO LAB BLOOD ORDERABLES Fin al Result Performing Organization Address [facility]/ZIP Co de Phone Number [facility] [address] [place] [address], [place] [phone] * (ABNORMAL) Hepatitis B surface antibody (07/24/2024 8:35 AM EDT) [facility] Hepatitis B Surface Ab Positive (A) Negative LAB CHEMISTRY METHOD 07/24/2024 10:01 AM EDT [facility] Hepatitis B Surface Ab Quantitative 85.7 mIU/mL LAB CHEMISTRY METHOD 07/24/2024 10:01 AM EDT [facility] Blood Venous blood specimen / Unknown Venipuncture / Unknown 07/24/2024 8:35 AM EDT 07/24/2024 9:10 AM EDT Narrative [facility] - 07/24/2024 10:01 AM EDT >=10 mIU/mL is considered to be consistent with immunity. Vazquez Conde MD LAB BLOOD ORDERABLES Final Result Performing Organization Address [facility]/ZIP Co de Phone Number [facility] [address] [place] [address], [place] [phone] * Hemoglobin A1c (07/24/2024 8:35 AM EDT) Pathologist [facility] Hemoglobin A1C 5.6 <6.5 % LAB CHEMISTRY METHOD 07/24/2024 10:32 AM EDT [facility] Mean Bld Glu Estim. 114 mg/dL LAB CHEMISTRY METHOD 07/24/2024 10:32 AM EDT [facility] Blood Venous blood specimen / Unknown Venipuncture / Unknown 07/24/2024 8:35 AM EDT 07/24/2024 9:11 AM EDT Angie ALEJO LAB BLOOD ORDERABLES Fin al Result [facility] [address] [place] [address], [place] [phone] * (ABNORMAL) Hepatic function panel (07/24/2024 8:35 AM EDT) Pathologist [facility] Total Protein 7.0 6.0 - 8.0 g/dL LAB CHEMISTRY METHOD 07/24/2024 10:08 AM EDT [facility] Albumin 3.9 3.2 - 5.0 g/dL LAB CHEMISTRY METHOD 07/24/2024 10:08 AM [facility] Total Bilirubin 0.6 0.0 - 1.4 mg/dL LAB CHEMISTRY METHOD 07/24/2024 10:08 AM [facility] Bilirubin, Direct 0.2 0.0 - 0.3 mg/dL LAB CHEMISTRY METHOD 07/24/2024 10:08 AM [facility] Bilirubin, Indirect 0.4 0.0 - 1.1 mg/dL LAB CHEMISTRY METHOD 07/24/2024 10:08 AM [facility] ALT (SGPT) 63(H) 10 - 60 unit/L LAB CHEMISTRY METHOD 07/24/2024 10:08 AM [facility] AST (SGOT) 29 10 - 42 unit/L LAB CHEMISTRY METHOD 07/24/2024 10:08 AM [facility] Alkaline Phosphatase 126(H) 42 - 121 unit/L LAB CHEMISTRY METHOD 07/24/2024 10:08 AM [facility] Blood Venous blood specimen / Unknown Venipuncture / Unknown 07/24/2024 8:35 AM EDT 07/24/2024 9:10 AM EDT Vazquez Conde MD LAB BLOOD ORDERABLES Final Result [facility] [address] [place] [address], * (ABNORMAL) Comprehensive metabolic panel (07/24/2024 8:35 AM EDT) Sodium 140 133 - 145 mmol/L LAB CHEMISTRY METHOD 07/24/2024 10:26 AM [facility] Potassium 3.9 3.5 - 5.5 mmol/L LAB CHEMISTRY METHOD 07/24/2024 10:26 AM [facility] Chloride 107 96 - 110 mmol/L LAB CHEMISTRY METHOD 07/24/2024 10:26 AM [facility] CO2 27 21 - 32 mmol/L LAB CHEMISTRY METHOD 07/24/2024 10:26 AM [facility] Anion Gap 6 3 - 11 LAB CHEMISTRY METHOD 07/24/2024 10:26 AM [facility] Glucose 93 70 - 100 mg/dL LAB CHEMISTRY METHOD 07/24/2024 10:26 AM [facility] BUN 11 5 - 25 mg/dL LAB CHEMISTRY METHOD 07/24/2024 10:26 AM [facility] Creatinine 0.82 0.50 - 1.10 mg/dL LAB CHEMISTRY METHOD 07/24/2024 10:26 AM [facility] eGFR 94 >=60 mL/min/1. 73m2 LAB CHEMISTRY METHOD 07/24/2024 10:26 AM [facility] Comment:Calculation based on the??Chronic Kidney Disease Epidemiology Collaboration (CKD-EPI) equation refit??without adjustment for race. BUN/Creatinine Ratio 13.4 LAB CHEMISTRY METHOD 07/24/2024 10:26 AM [facility] Calcium 9.2 8.5 - 10.5 mg/dL LAB CHEMISTRY METHOD 07/24/2024 10:26 AM [facility] AST (SGOT) 31 10 - 42 unit/L LAB CHEMISTRY METHOD 07/24/2024 10:26 AM [facility] ALT (SGPT) 63(H) 10 - 60 unit/L LAB CHEMISTRY METHOD 07/24/2024 10:26 AM [facility] Alkaline Phosphatase 130(H) 42 - 121 unit/L LAB CHEMISTRY METHOD 07/24/2024 10:26 AM [facility] Total Protein 6.9 6.0 - 8.0 g/dL LAB CHEMISTRY METHOD 07/24/2024 10:26 AM [facility] Albumin 3.8 3.2 - 5.0 g/dL LAB CHEMISTRY METHOD 07/24/2024 10:26 AM EDT [facility] Total Bilirubin 0.6 0.0 - 1.4 mg/dL LAB CHEMISTRY METHOD 07/24/2024 10:26 AM EDT [facility] Blood Venous blood specimen / Unknown Venipuncture / Unknown 07/24/2024 8:35 AM EDT 07/24/2024 9:10 AM EDT us Angie ALEJO LAB BLOOD ORDERABLES Fin al Result [facility] [address] [place] [address], from Last 3 Months Insurance [facility] Care Teams Medical Office Asst Relationship Specialty Start Date End Date Naomi Quintana MD [address] [phone] PCP - General Internal Medicine 07/24/24
--- OUTSIDE RECORDS SUMMARY | 2024-09-23 18:41 | XMS_ITS | Patient Health Record ---
Author Organization [facility] Address [address] [place] [address] Care Team Providers Care Ip/Mosaic Technician Name Role Phone JAMARCUS GRANT Primary Care Provider [facility] Unavailable [phone] Allergies Allergen (clinical drug ingredient) Drug/Non Drug Allergy documented on EMR Reaction Allergy Type Onset Date Status dicloxacillin Dicloxacillin nausea and vomiting Drug Allergy Active Results Component Value Reference Range Notes HEMOGLOBIN A1C Reviewed date:07/24/2024 12:14:53 PM Interpretation: Performing Lab: Notes/Report: Hemoglobin A1C 5.6 <6.5 % Mean Bld Glu Estim. 114 THYROID STIMULATING HORMONE WITH REFLEX TO FREE T4 AND FREE T3 Reviewed date:07/24/2024 12:16:21 PM Interpretation: Performing Lab: Notes/Report: TSH 1.43 0.40-4.00 mcIU/mL COMPREHENSIVE METABOLIC PANE L Reviewed date:07/24/2024 12:16:18 PM Interpretation: Performing Lab: Notes/Report: Sodium 140 133-145 mmol/L Potassium 3.9 3.5-5.5 mmol/L Chloride 107 96-110 mmol/L CO2 27 21-32 mmol/L Anion Gap 6 3-11 Glucose 93 70-100 mg/dL BUN 11 5-25 mg/dL Creatinine 0.82 0.50-1.10 mg/dL eGFR 94 >=60 mL/min/1.73m2 Calculati on based on the Chronic Kidney Disease Epidemiology Collaboration (CKD-EPI) equation refit without adjustment for race. BUN/Creatinine Ratio 13.4 Calcium 9.2 8.5-10.5 mg/dL AST (SGOT) 31 10-42 unit/L ALT (SGPT) 63 10-60 unit/L Alkaline Phosphatase 130 42-121 unit/L Total Protein 6.9 6.0-8.0 g/dL Albumin 3.8 3.2-5.0 g/dL Total Bilirubin 0.6 0.0-1.4 mg/dL VITAMIN D 25 HYDROXY Reviewed date:07/24/2024 12:18:11 PM Interpretation: Performing Lab: Notes/Report: Vit D, 25-Hydroxy 13.4 30.0-80.0 ng/mL LIPID PANEL WITH REFLEX TO D IRECT LDL Reviewed date:07/24/2024 12:15:41 PM Interpretation: Performing Lab: Notes/Report: Cholesterol 144 0-200 mg/dL Triglycerides 66 0-150 mg/dL HDL 47 >=40 mg/dL LDL Calculated 84 0-100 mg/dL VLDL Cholesterol Wayne 13.2 Non HDL Chol. (LDL+VLDL) 97 <145 mg/dL Chol/HDL Ratio 3.1 0.0-4.4 CBC WITH AUTO DIFFERENTIAL Reviewed date:07/24/2024 12:18:22 PM Interpretation: Performing Lab: Notes/Report: WBC 7.8 4.8-10.8 K/mcL RBC 4.90 3.80-4.80 M/mcL Hemoglobin 13.7 11.5-16.0 g/dL Hematocrit 42.5 35.0-47.0 % MCV 87.6 79.0-98.0 FL MCH 28.2 27.0-32.0 pcg MCHC 32.2 32.0-37.0 g/dL RDW 13.2 11.0-15.0 % Platelets 269 130-400 K/mcL MPV 11.8 7.0-11.0 FL NRBC 0.0 <1.0 % NRBC Absolute 0.00 <0.10 K/mcL Neutrophils Relative 59.5 Lymphocytes Relative 27.2 Monocytes Relative 10.3 Eosinophils Relative 2.2 Basophils Relative 0.5 Immature Granulocytes Relative 0.3 Neutrophils Absolute 4.61 1.50-7.00 K/mcL Lymphocytes Absolute 2.11 1.00-5.00 K/mcL Monocytes Absolute 0.80 0.20-1.00 K/mcL Eosinophils Absolute 0.17 0.00-0.50 K/mcL Basophils Absolute 0.04 0.00-0.20 K/mcL Immature Granulocytes Absolute 0.02 0.00-0.03 K/mcL Reason For Referral No Information Medications Medication SIG (Take, Route, Frequency, Duration) Notes Start Date End Date Status Zepbound 5 MG/0.5ML Inject 5mg Subcutane ous weekly for 30 days 08/28/2024 Active Ergocalciferol 1.25 MG (43947 UT) 1 capsule Orally once weekly for 30 days 07/24/2024 Active Botox Active Omeprazole 20 MG 1 capsule 1/2 to 1 h our before morning meal Orally Once a day Active Otezla 30 MG 1 tablet Orally Twic e a day Active Qulipta 30 MG 1 tablet Orally Once a day Active Mirena Active Zepbound 2.5 MG/0.5ML Inject 2.5mg Subcu taneous weekly for 30 days Active Problems Problem Type SNOMED Code ICD Code Onset Dates Problem Status W/U Status Risk Notes Problem 672070129 Obesity (BMI 30-39.9) (E66.9) Active confirmed Problem 3752829 Psoriasis (L40.9) Active confirmed Problem 361264359 PCOS (polycystic ovarian syndrome) (E28.2) Active confirmed Problem BMI 38.0-38.9,adul t (Z68.38) Active confirmed Problem 182353178667595 Episodic migraine (G43.909) Active confirmed Vital Signs Heart Rate 94 /min 08/28/2024 Oximetry 97 % 08/28/2024 Blood pressure diastolic 90 mm Hg 08/28/2024 Height 64 in 08/28/2024 Blood pressure systolic 132 mm Hg 08/28/2024 Weight 223 lbs 08/28/2024 BMI 38.27 kg/m2 08/28/2024 Encounters Encounter Location Date Provider Diagnosis [address] [address] 06/19/2024 [facility] [place] Morbid obesity E66.0 1 ; BMI 40.0-44.9, adult Z68.41 and PCOS (polycystic ovarian syndrome) E28.2 [address] [address] 07/24/2024 [facility] [place] Obesity (BMI 30-39.9 ) E66.9 ; BMI 38.0-38.9,adult Z68.38 and PCOS (polycystic ovarian syndrome) E28.2 [address] [facility] [address] [place] [address] 08/28/2024 [facility] Obesity (BMI 30-39.9 ) E66.9 ; BMI 38.0-38.9,adult Z68.38 ; PCOS (polycystic ovarian syndrome) E28.2 and Nutritional counseling Z71.3 [facility] [address] [facility] [address] [place] [address] 06/19/2024 [facility] [address] [address] 06/19/2024 [facility] [address] [address] 07/24/2024 [facility] [address] [address] 08/21/2024 [facility] [place] Assessments Encounter Date Diagnosis (ICD Code) Assessment Notes Treatment Notes Treatment Clinical Notes Section Notes 06/19/2024 Morbid obesity (ICD-10 - E66.01) Trell is a 39-year-old female with a PMH of PCOS, migraines, psoriasis that presents for weight management consultation. Patient was reassured and welcomed to the practice. Discussed [facility] holistic and medical approach to weight loss with emphasis on lifestyle modification. Patient is educated that a healthy lifestyle aids in combating obesity as well as reducing the risk of developing obesity-related medical complications including but not limited to diabetes and cardiovascular disease. Detailed education provided about taking steps to initiate sustainable lifestyle changes including incorporating regular physical activity, making healthy diet choices, and prioritizing mental health. Information provided about literature including The Food Rules by Phil Melendez and Eat Fat Get Lean by Dr Mike Sewell. Handouts including lifestyle checklist, protein content of food, low calorie snacks, and cholesterol information sheet provided. Diagnostic testing/ SECA scale offered. Discussed the importance of regular SECA scale measurements to ensure healthy weight loss. 06/19/2024: Reviewed SECA/goals for implementing sustainable lifestyle changes. Patient is encouraged to increase physical activity, goal 8-10k steps/day. Also discussed the importance of strength training with proper safety/body mechanics for maintenance of muscle mass/bone health. Patient encouraged to drink 60-80oz water/day. Reviewed nutrition, recommending food diary x 1 week to ensure adequate caloric/protein intake. Goal of 80-100g protein/day. Reviewed risks, benefits, and side effects of weight management medications including phentermine, Topamax, Contrave, metformin, and GLP-1 agonist.Patient interested in GLP-1 agonist Zepbound. Denies personal/family history of medullary thyroid cancer/M EN syndrome. Rx for Zepbound 2.5 mg SC weekly sent to pharmacy. Reviewed proper use/administration as well as side effects and expectations for PA process/insurance coverage. Patient would like to initiate treatment with compounded Ceftin in the meantime, 2.5 mg administered in office. After consultation and careful review of medical history, this patient would benefit from Zepbound based off of the following criteria met: Patient is over the age of 18 with a BMI of 40. Additional comorbidities include PCOS. Patient has trialed other methods of weight loss including improving diet and exercise without success over at least three months. This medication is prescribed by or in consultation with a board-certified obesity and weight management physician (Dr. Slime Solorio or Dr. Ansley Solorio). All questions answered to the patient's satisfaction. Patient demonstrates understanding of diagnosis and treatments discussed. Follow-up in 4 weeks, sooner should any questions/concerns arise. Case discussed with collaborating physician Rosalina Solorio who has reviewed the assessment/plan. Chart, medications, labs, and vital signs reviewed. Dictation completed with the use of [employer] voice recognition software, prone to medical misidentifications and grammatical errors. All errors are unintentional. Although the practitioner does try to identify and correct errors, some may be present. Please do not hesitate to contact the practitioner for clarification. Total time was 60 minutes spent with >50% on coordination of care and patient education. 06/19/2024 BMI 40.0-44.9, adult (ICD-10 - Z68.41) Trell is a 39-year-old female with a PMH of PCOS, migraines, psoriasis that presents for weight management consultation. Patient was reassured and welcomed to the practice. Discussed [facility] holistic and medical approach to weight loss with emphasis on lifestyle modification. Patient is educated that a healthy lifestyle aids in combating obesity as well as reducing the risk of developing obesity-related medical complications including but not limited to diabetes and cardiovascular disease. Detailed education provided about taking steps to initiate sustainable lifestyle changes including incorporating regular physical activity, making healthy diet choices, and prioritizing mental health. Information provided about literature including The Food Rules by Phil Melendez and Eat Fat Get Lean by Dr Mike Sewell. Handouts including lifestyle checklist, protein content of food, low calorie snacks, and cholesterol information sheet provided. Diagnostic testing/ SECA scale offered. Discussed the importance of regular SECA scale measurements to ensure healthy weight loss. 06/19/2024: Reviewed SECA/goals for implementing sustainable lifestyle changes. Patient is encouraged to increase physical activity, goal 8-10k steps/day. Also discussed the importance of strength training with proper safety/body mechanics for maintenance of muscle mass/bone health. Patient encouraged to drink 60-80oz water/day. Reviewed nutrition, recommending food diary x 1 week to ensure adequate caloric/protein intake. Goal of 80-100g protein/day. Reviewed risks, benefits, and side effects of weight management medications including phentermine, Topamax, Contrave, metformin, and GLP-1 agonist.Patient interested in GLP-1 agonist Zepbound. Denies personal/family history of medullary thyroid cancer/M EN syndrome. Rx for Zepbound 2.5 mg SC weekly sent to pharmacy. Reviewed proper use/administration as well as side effects and expectations for PA process/insurance coverage. Patient would like to initiate treatment with compounded Ceftin in the meantime, 2.5 mg administered in office. After consultation and careful review of medical history, this patient would benefit from Zepbound based off of the following criteria met: Patient is over the age of 19 with a BMI of 40. Additional comorbidities include PCOS. Patient has trialed other methods of weight loss including improving diet and exercise without success over at least three months. This medication is prescribed by or in consultation with a board-certified obesity and weight management physician (Dr. Slime Solorio or Dr. Ansley Solorio). All questions answered to the patient's satisfaction. Patient demonstrates understanding of diagnosis and treatments discussed. Follow-up in 4 weeks, sooner should any questions/concerns arise. Case discussed with collaborating physician Rosalina Solorio who has reviewed the assessment/plan. Chart, medications, labs, and vital signs reviewed. Dictation completed with the use of [employer] voice recognition software, prone to medical misidentifications and grammatical errors. All errors are unintentional. Although the practitioner does try to identify and correct errors, some may be present. Please do not hesitate to contact the practitioner for clarification. Total time was 60 minutes spent with >50% on coordination of care and patient education. 07/24/2024 Obesity (BMI 30-39.9) (ICD-10 - E66.9) Trell is a 39-year-old female with a PMH of PCOS, migraines, psoriasis that presents for weight management follow-up. Reviewed [facility] holistic and medical approach to weight loss with emphasis on lifestyle modification. 07/24/2024: Weight: 222, BMI: 38. Patient down 14 pounds, congratulated on progress. Seca reviewed, reveals 8 pounds of fat loss and 4 pounds of muscle mass loss. The patient is encouraged to continue practicing portion control and prioritizing protein intake. Discussed the importance of adequate nutrition in the setting of GLP-1 induced appetite suppression. Patient is encouraged to continue walking regularly, discussed importance of adding strength training for continued maintenance of muscle mass. Recommended daily fiber supplement and/or stool softener with goal of maintaining regular bowel movements. Given 14 pound weight loss, will continue Zepbound 2.5 mg SC weekly and follow-up in 1 month. 06/19/2024: Reviewed SECA/goals for implementing sustainable lifestyle changes. Patient is encouraged to increase physical activity, goal 8-10k steps/day. Also discussed the importance of strength training with proper safety/body mechanics for maintenance of muscle mass/bone health. Patient encouraged to drink 60-80oz water/day. Reviewed nutrition, recommending food diary x 1 week to ensure adequate caloric/protein intake. Goal of 80-100g protein/day. Reviewed risks, benefits, and side effects of weight management medications including phentermine, Topamax, Contrave, metformin, and GLP-1 agonist.Patient interested in GLP-1 agonist Zepbound. Denies personal/family history of medullary thyroid cancer/M EN syndrome. Rx for Zepbound 2.5 mg SC weekly sent to pharmacy. Reviewed proper use/administration as well as side effects and expectations for PA process/insurance coverage. Patient would like to initiate treatment with compounded Ceftin in the meantime, 2.5 mg administered in office. All questions answered to the patient's satisfaction. Patient demonstrates understanding of diagnosis and treatments discussed. Follow-up in 4 weeks, sooner should any questions/concerns arise. Case discussed with collaborating physician Rosalina Solorio who has reviewed the assessment/plan. Chart, medications, labs, and vital signs reviewed. Dictation completed with the use of [employer] voice recognition software, prone to medical misidentifications and grammatical errors. All errors are unintentional. Although the practitioner does try to identify and correct errors, some may be present. Please do not hesitate to contact the practitioner for clarification. Total time was 30 minutes spent with >50% on coordination of care and patient education. 07/24/2024 BMI 38.0-38.9,adul t (ICD-10 - Z68.38) Trell is a 39-year-old female with a PMH of PCOS, migraines, psoriasis that presents for weight management follow-up. Reviewed [facility] holistic and medical approach to weight loss with emphasis on lifestyle modification. 07/24/2024: Weight: 222, BMI: 38. Patient down 14 pounds, congratulated on progress. Seca reviewed, reveals 8 pounds of fat loss and 4 pounds of muscle mass loss. The patient is encouraged to continue practicing portion control and prioritizing protein intake. Discussed the importance of adequate nutrition in the setting of GLP-1 induced appetite suppression. Patient is encouraged to continue walking regularly, discussed importance of adding strength training for continued maintenance of muscle mass. Recommended daily fiber supplement and/or stool softener with goal of maintaining regular bowel movements. Given 14 pound weight loss, will continue Zepbound 2.5 mg SC weekly and follow-up in 1 month. 06/19/2024: Reviewed SECA/goals for implementing sustainable lifestyle changes. Patient is encouraged to increase physical activity, goal 8-10k steps/day. Also discussed the importance of strength training with proper safety/body mechanics for maintenance of muscle mass/bone health. Patient encouraged to drink 60-80oz water/day. Reviewed nutrition, recommending food diary x 1 week to ensure adequate caloric/protein intake. Goal of 80-100g protein/day. Reviewed risks, benefits, and side effects of weight management medications including phentermine, Topamax, Contrave, metformin, and GLP-1 agonist.Patient interested in GLP-1 agonist Zepbound. Denies personal/family history of medullary thyroid cancer/M EN syndrome. Rx for Zepbound 2.5 mg SC weekly sent to pharmacy. Reviewed proper use/administration as well as side effects and expectations for PA process/insurance coverage. Patient would like to initiate treatment with compounded Ceftin in the meantime, 2.5 mg administered in office. All questions answered to the patient's satisfaction. Patient demonstrates understanding of diagnosis and treatments discussed. Follow-up in 4 weeks, sooner should any questions/concerns arise. Case discussed with collaborating physician Rosalina Solorio who has reviewed the assessment/plan. Chart, medications, labs, and vital signs reviewed. Dictation completed with the use of [employer] voice recognition software, prone to medical misidentifications and grammatical errors. All errors are unintentional. Although the practitioner does try to identify and correct errors, some may be present. Please do not hesitate to contact the practitioner for clarification. Total time was 30 minutes spent with >50% on coordination of care and patient education. 08/28/2024 Obesity (BMI 30-39.9) (ICD-10 - E66.9) Trell is a 39-year-old female with a PMH of PCOS, migraines, psoriasis that presents for weight management follow-up. Reviewed [facility] holistic and medical approach to weight loss with emphasis on lifestyle modification. 08/28/2024: Weight: 223, BMI: 38.3. SECA reviewed, reveals 5 pounds of fat loss and 1 pound of muscle mass gain. Although overall weight has not changed, composition has improved. Discussed importance of reestablishing routine and prioritizing mental health with the recent loss of her dog. The patient is encouraged to continue making health-conscious diet choices, exercising regularly, and hydrating adequately. Plan to increase dose of Zepbound to 5 mg SC weekly and follow-up in 1 month. 07/24/2024: Weight: 222, BMI: 38. Patient down 14 pounds, congratulated on progress. Seca reviewed, reveals 8 pounds of fat loss and 4 pounds of muscle mass loss. The patient is encouraged to continue practicing portion control and prioritizing protein intake. Discussed the importance of adequate nutrition in the setting of GLP-1 induced appetite suppression. Patient is encouraged to continue walking regularly, discussed importance of adding strength training for continued maintenance of muscle mass. Recommended daily fiber supplement and/or stool softener with goal of maintaining regular bowel movements. Given 14 pound weight loss, will continue Zepbound 2.5 mg SC weekly and follow-up in 1 month. 06/19/2024: Reviewed SECA/goals for implementing sustainable lifestyle changes. Patient is encouraged to increase physical activity, goal 8-10k steps/day. Also discussed the importance of strength training with proper safety/body mechanics for maintenance of muscle mass/bone health. Patient encouraged to drink 60-80oz water/day. Reviewed nutrition, recommending food diary x 1 week to ensure adequate caloric/protein intake. Goal of 80-100g protein/day. Reviewed risks, benefits, and side effects of weight management medications including phentermine, Topamax, Contrave, metformin, and GLP-1 agonist.Patient interested in GLP-1 agonist Zepbound. Denies personal/family history of medullary thyroid cancer/M EN syndrome. Rx for Zepbound 2.5 mg SC weekly sent to pharmacy. Reviewed proper use/administration as well as side effects and expectations for PA process/insurance coverage. Patient would like to initiate treatment with compounded Ceftin in the meantime, 2.5 mg administered in office. All questions answered to the patient's satisfaction. Patient demonstrates understanding of diagnosis and treatments discussed. Follow-up in 4 weeks, sooner should any questions/concerns arise. Case discussed with collaborating physician Rosalina Solorio who has reviewed the assessment/plan. Chart, medications, labs, and vital signs reviewed. Dictation completed with the use of [employer] voice recognition software, prone to medical misidentifications and grammatical errors. All errors are unintentional. Although the practitioner does try to identify and correct errors, some may be present. Please do not hesitate to contact the practitioner for clarification. Total time was 30 minutes spent with >50% on coordination of care and patient education. 08/28/2024 BMI 38.0-38.9,adul t (ICD-10 - Z68.38) Trell is a 39-year-old female with a PMH of PCOS, migraines, psoriasis that presents for weight management follow-up. Reviewed [facility] holistic and medical approach to weight loss with emphasis on lifestyle modification. 08/28/2024: Weight: 223, BMI: 38.3. SECA reviewed, reveals 5 pounds of fat loss and 1 pound of muscle mass gain. Although overall weight has not changed, composition has improved. Discussed importance of reestablishing routine and prioritizing mental health with the recent loss of her dog. The patient is encouraged to continue making health-conscious diet choices, exercising regularly, and hydrating adequately. Plan to increase dose of Zepbound to 5 mg SC weekly and follow-up in 1 month. 07/24/2024: Weight: 222, BMI: 38. Patient down 14 pounds, congratulated on progress. Seca reviewed, reveals 8 pounds of fat loss and 4 pounds of muscle mass loss. The patient is encouraged to continue practicing portion control and prioritizing protein intake. Discussed the importance of adequate nutrition in the setting of GLP-1 induced appetite suppression. Patient is encouraged to continue walking regularly, discussed importance of adding strength training for continued maintenance of muscle mass. Recommended daily fiber supplement and/or stool softener with goal of maintaining regular bowel movements. Given 14 pound weight loss, will continue Zepbound 2.5 mg SC weekly and follow-up in 1 month. 06/19/2024: Reviewed SECA/goals for implementing sustainable lifestyle changes. Patient is encouraged to increase physical activity, goal 8-10k steps/day. Also discussed the importance of strength training with proper safety/body mechanics for maintenance of muscle mass/bone health. Patient encouraged to drink 60-80oz water/day. Reviewed nutrition, recommending food diary x 1 week to ensure adequate caloric/protein intake. Goal of 80-100g protein/day. Reviewed risks, benefits, and side effects of weight management medications including phentermine, Topamax, Contrave, metformin, and GLP-1 agonist.Patient interested in GLP-1 agonist Zepbound. Denies personal/family history of medullary thyroid cancer/M EN syndrome. Rx for Zepbound 2.5 mg SC weekly sent to pharmacy. Reviewed proper use/administration as well as side effects and expectations for PA process/insurance coverage. Patient would like to initiate treatment with compounded Ceftin in the meantime, 2.5 mg administered in office. All questions answered to the patient's satisfaction. Patient demonstrates understanding of diagnosis and treatments discussed. Follow-up in 4 weeks, sooner should any questions/concerns arise. Case discussed with collaborating physician Rosalina Solorio who has reviewed the assessment/plan. Chart, medications, labs, and vital signs reviewed. Dictation completed with the use of [employer] voice recognition software, prone to medical misidentifications and grammatical errors. All errors are unintentional. Although the practitioner does try to identify and correct errors, some may be present. Please do not hesitate to contact the practitioner for clarification. Total time was 30 minutes spent with >50% on coordination of care and patient education. 08/28/2024 PCOS (polycystic ovarian syndrome) (ICD-10 - E28.2) Trell is a 39-year-old female with a PMH of PCOS, migraines, psoriasis that presents for weight management follow-up. Reviewed [facility] holistic and medical approach to weight loss with emphasis on lifestyle modification. 08/28/2024: Weight: 223, BMI: 38.3. SECA reviewed, reveals 5 pounds of fat loss and 1 pound of muscle mass gain. Although overall weight has not changed, composition has improved. Discussed importance of reestablishing routine and prioritizing mental health with the recent loss of her dog. The patient is encouraged to continue making health-conscious diet choices, exercising regularly, and hydrating adequately. Plan to increase dose of Zepbound to 5 mg SC weekly and follow-up in 1 month. 07/24/2024: Weight: 222, BMI: 38. Patient down 14 pounds, congratulated on progress. Seca reviewed, reveals 8 pounds of fat loss and 4 pounds of muscle mass loss. The patient is encouraged to continue practicing portion control and prioritizing protein intake. Discussed the importance of adequate nutrition in the setting of GLP-1 induced appetite suppression. Patient is encouraged to continue walking regularly, discussed importance of adding strength training for continued maintenance of muscle mass. Recommended daily fiber supplement and/or stool softener with goal of maintaining regular bowel movements. Given 14 pound weight loss, will continue Zepbound 2.5 mg SC weekly and follow-up in 1 month. 06/19/2024: Reviewed SECA/goals for implementing sustainable lifestyle changes. Patient is encouraged to increase physical activity, goal 8-10k steps/day. Also discussed the importance of strength training with proper safety/body mechanics for maintenance of muscle mass/bone health. Patient encouraged to drink 60-80oz water/day. Reviewed nutrition, recommending food diary x 1 week to ensure adequate caloric/protein intake. Goal of 80-100g protein/day. Reviewed risks, benefits, and side effects of weight management medications including phentermine, Topamax, Contrave, metformin, and GLP-1 agonist.Patient interested in GLP-1 agonist Zepbound. Denies personal/family history of medullary thyroid cancer/M EN syndrome. Rx for Zepbound 2.5 mg SC weekly sent to pharmacy. Reviewed proper use/administration as well as side effects and expectations for PA process/insurance coverage. Patient would like to initiate treatment with compounded Ceftin in the meantime, 2.5 mg administered in office. All questions answered to the patient's satisfaction. Patient demonstrates understanding of diagnosis and treatments discussed. Follow-up in 4 weeks, sooner should any questions/concerns arise. Case discussed with collaborating physician Rosalina Solorio who has reviewed the assessment/plan. Chart, medications, labs, and vital signs reviewed. Dictation completed with the use of [employer] voice recognition software, prone to medical misidentifications and grammatical errors. All errors are unintentional. Although the practitioner does try to identify and correct errors, some may be present. Please do not hesitate to contact the practitioner for clarification. Total time was 30 minutes spent with >50% on coordination of care and patient education. 07/24/2024 PCOS (polycystic ovarian syndrome) (ICD-10 - E28.2) Trell is a 39-year-old female with a PMH of PCOS, migraines, psoriasis that presents for weight management follow-up. Reviewed [facility] holistic and medical approach to weight loss with emphasis on lifestyle modification. 07/24/2024: Weight: 222, BMI: 38. Patient down 14 pounds, congratulated on progress. Seca reviewed, reveals 8 pounds of fat loss and 4 pounds of muscle mass loss. The patient is encouraged to continue practicing portion control and prioritizing protein intake. Discussed the importance of adequate nutrition in the setting of GLP-1 induced appetite suppression. Patient is encouraged to continue walking regularly, discussed importance of adding strength training for continued maintenance of muscle mass. Recommended daily fiber supplement and/or stool softener with goal of maintaining regular bowel movements. Given 14 pound weight loss, will continue Zepbound 2.5 mg SC weekly and follow-up in 1 month. 06/19/2024: Reviewed SECA/goals for implementing sustainable lifestyle changes. Patient is encouraged to increase physical activity, goal 8-10k steps/day. Also discussed the importance of strength training with proper safety/body mechanics for maintenance of muscle mass/bone health. Patient encouraged to drink 60-80oz water/day. Reviewed nutrition, recommending food diary x 1 week to ensure adequate caloric/protein intake. Goal of 80-100g protein/day. Reviewed risks, benefits, and side effects of weight management medications including phentermine, Topamax, Contrave, metformin, and GLP-1 agonist.Patient interested in GLP-1 agonist Zepbound. Denies personal/family history of medullary thyroid cancer/M EN syndrome. Rx for Zepbound 2.5 mg SC weekly sent to pharmacy. Reviewed proper use/administration as well as side effects and expectations for PA process/insurance coverage. Patient would like to initiate treatment with compounded Ceftin in the meantime, 2.5 mg administered in office. All questions answered to the patient's satisfaction. Patient demonstrates understanding of diagnosis and treatments discussed. Follow-up in 4 weeks, sooner should any questions/concerns arise. Case discussed with collaborating physician Rosalina Solorio who has reviewed the assessment/plan. Chart, medications, labs, and vital signs reviewed. Dictation completed with the use of [employer] voice recognition software, prone to medical misidentifications and grammatical errors. All errors are unintentional. Although the practitioner does try to identify and correct errors, some may be present. Please do not hesitate to contact the practitioner for clarification. Total time was 30 minutes spent with >50% on coordination of care and patient education. 06/19/2024 PCOS (polycystic ovarian syndrome) (ICD-10 - E28.2) Trell is a 39-year-old female with a PMH of PCOS, migraines, psoriasis that presents for weight management consultation. Patient was reassured and welcomed to the practice. Discussed [facility] holistic and medical approach to weight loss with emphasis on lifestyle modification. Patient is educated that a healthy lifestyle aids in combating obesity as well as reducing the risk of developing obesity-related medical complications including but not limited to diabetes and cardiovascular disease. Detailed education provided about taking steps to initiate sustainable lifestyle changes including incorporating regular physical activity, making healthy diet choices, and prioritizing mental health. Information provided about literature including The Food Rules by Phil Melendez and Eat Fat Get Lean by Dr Mike Sewell. Handouts including lifestyle checklist, protein content of food, low calorie snacks, and cholesterol information sheet provided. Diagnostic testing/ SECA scale offered. Discussed the importance of regular SECA scale measurements to ensure healthy weight loss. 06/19/2024: Reviewed SECA/goals for implementing sustainable lifestyle changes. Patient is encouraged to increase physical activity, goal 8-10k steps/day. Also discussed the importance of strength training with proper safety/body mechanics for maintenance of muscle mass/bone health. Patient encouraged to drink 60-80oz water/day. Reviewed nutrition, recommending food diary x 1 week to ensure adequate caloric/protein intake. Goal of 80-100g protein/day. Reviewed risks, benefits, and side effects of weight management medications including phentermine, Topamax, Contrave, metformin, and GLP-1 agonist.Patient interested in GLP-1 agonist Zepbound. Denies personal/family history of medullary thyroid cancer/M EN syndrome. Rx for Zepbound 2.5 mg SC weekly sent to pharmacy. Reviewed proper use/administration as well as side effects and expectations for PA process/insurance coverage. Patient would like to initiate treatment with compounded Ceftin in the meantime, 2.5 mg administered in office. After consultation and careful review of medical history, this patient would benefit from Zepbound based off of the following criteria met: Patient is over the age of 18 with a BMI of 40. Additional comorbidities include PCOS. Patient has trialed other methods of weight loss including improving diet and exercise without success over at least three months. This medication is prescribed by or in consultation with a board-certified obesity and weight management physician (Dr. Slime Solorio or Dr. Ansley Solorio). All questions answered to the patient's satisfaction. Patient demonstrates understanding of diagnosis and treatments discussed. Follow-up in 4 weeks, sooner should any questions/concerns arise. Case discussed with collaborating physician Rosalina Solorio who has reviewed the assessment/plan. Chart, medications, labs, and vital signs reviewed. Dictation completed with the use of [employer] voice recognition software, prone to medical misidentifications and grammatical errors. All errors are unintentional. Although the practitioner does try to identify and correct errors, some may be present. Please do not hesitate to contact the practitioner for clarification. Total time was 60 minutes spent with >50% on coordination of care and patient education. 08/28/2024 Nutritional counseling (ICD-10 - Z71.3) Trell is a 39-year-old female with a PMH of PCOS, migraines, psoriasis that presents for weight management follow-up. Reviewed [facility] holistic and medical approach to weight loss with emphasis on lifestyle modification. 08/28/2024: Weight: 223, BMI: 38.3. SECA reviewed, reveals 5 pounds of fat loss and 1 pound of muscle mass gain. Although overall weight has not changed, composition has improved. Discussed importance of reestablishing routine and prioritizing mental health with the recent loss of her dog. The patient is encouraged to continue making health-conscious diet choices, exercising regularly, and hydrating adequately. Plan to increase dose of Zepbound to 5 mg SC weekly and follow-up in 1 month. 07/24/2024: Weight: 222, BMI: 38. Patient down 14 pounds, congratulated on progress. Seca reviewed, reveals 8 pounds of fat loss and 4 pounds of muscle mass loss. The patient is encouraged to continue practicing portion control and prioritizing protein intake. Discussed the importance of adequate nutrition in the setting of GLP-1 induced appetite suppression. Patient is encouraged to continue walking regularly, discussed importance of adding strength training for continued maintenance of muscle mass. Recommended daily fiber supplement and/or stool softener with goal of maintaining regular bowel movements. Given 14 pound weight loss, will continue Zepbound 2.5 mg SC weekly and follow-up in 1 month. 06/19/2024: Reviewed SECA/goals for implementing sustainable lifestyle changes. Patient is encouraged to increase physical activity, goal 8-10k steps/day. Also discussed the importance of strength training with proper safety/body mechanics for maintenance of muscle mass/bone health. Patient encouraged to drink 60-80oz water/day. Reviewed nutrition, recommending food diary x 1 week to ensure adequate caloric/protein intake. Goal of 80-100g protein/day. Reviewed risks, benefits, and side effects of weight management medications including phentermine, Topamax, Contrave, metformin, and GLP-1 agonist.Patient interested in GLP-1 agonist Zepbound. Denies personal/family history of medullary thyroid cancer/M EN syndrome. Rx for Zepbound 2.5 mg SC weekly sent to pharmacy. Reviewed proper use/administration as well as side effects and expectations for PA process/insurance coverage. Patient would like to initiate treatment with compounded Ceftin in the meantime, 2.5 mg administered in office. All questions answered to the patient's satisfaction. Patient demonstrates understanding of diagnosis and treatments discussed. Follow-up in 4 weeks, sooner should any questions/concerns arise. Case discussed with collaborating physician Rosalina Solorio who has reviewed the assessment/plan. Chart, medications, labs, and vital signs reviewed. Dictation completed with the use of [employer] voice recognition software, prone to medical misidentifications and grammatical errors. All errors are unintentional. Although the practitioner does try to identify and correct errors, some may be present. Please do not hesitate to contact the practitioner for clarification. Total time was 30 minutes spent with >50% on coordination of care and patient education. Plan Of Treatment Pending Test Test Name Order Date 25OH VITAMIN D 06/19/2024 CBC (COMPLETE BLOOD COUNT) WITH DIFF COMPREHENSIVE METABOLIC PANEL 06/19/2024 HEMOGLOBIN A1C 06/19/2024 LIPID PANEL 06/19/2024 TSH WITH REFLEX TO FT4 06/19/2024 Next Appt Details Provider Name:IRMA Nassar, 09/25/2024 08:45:00 AM, [address] [facility] [address], [place], [address], Insurance Providers Payer Name Payer Address Payer Phone Subscriber Number Group Number Insured Name Patient Relationship to Insured Coverage Start Date Coverage End Date [employer] [address] [place] [address] [phone] [id number] TRELL NGUYEN Self - patient is the insured Medications Administered Medication Instructions Date of Administration Dosage Notes Tirzepatide 06/19/2024 2.5 mg Medical (General) History Medical History History ICD Code Episodic migraine G43.909 Psoriasis L40.9 PCOS (polycystic ovarian syndrome) E28.2 Surgical History Surgery Date(Month/Year) C section 09/2008
[2024-09-23 18:43] LABS: MANUAL DIFF FLAG NO
[2024-09-23 18:44] LABS: Basophils Percent Auto 0.3 % (0-2); Eosinophils Absolute Auto 0.1 X10*3/uL (0.0-0.4); Eosinophils Percent Auto 1.2 % (0-4); Hematocrit 39.8 % (37.0-47.0); Hemoglobin 13.4 g/dl (12.0-16.0); Imm Gran Abs Auto 0.04 X10*3/uL (0.00-0.03); Imm Gran Pct Auto 0.4 % (0.0-0.4); Lymphocytes Absolute Auto 2.6 X10*3/uL (1.2-4.9); Lymphocytes Percent Auto 24.5 % (20-40); Mean Corpuscular HGB Conc 33.7 g/dl (31.0-35.0); Mean Corpuscular Hemoglobin 28.4 pg (27.0-33.0); Mean Corpuscular Volume 84.3 fL (80.0-98.0); Mean Platelet Volume 10.8 fL (9.4-12.3); Monocytes Absolute Auto 0.7 X10*3/uL (0.1-1.2); Monocytes Percent Auto 6.6 % (2-11); Platelet Count 284 X10*3/uL (160-400); Red Blood Count 4.72 X10*6/uL (4.20-5.50); Red Cell Distribution Width 13.2 % (11.0-16.0); White Blood Count 10.4 X10*3/uL (4.8-10.8)
[2024-09-23 19:10] LABS: Appearance Urine Clear; Color Urine Yellow; Glucose Urine UA Negative (Negative); Leukocyte Esterase Urine Negative (Negative); Nitrite Urine Negative (Negative); PH 5.5 (5.0-9.0); Specific Gravity - Urine 1.015 (1.005-1.025); Urine Blood Negative (Negative); Urine Ketones Negative (Negative); Urine Protein Negative (Neg-Trace)
[2024-09-23 19:11] LABS: UPreg QC Valid YES; Urine Pregnancy NEGATIVE (NEGATIVE)
[2024-09-23 19:12] LABS: Alanine Aminotransferase 52 U/L (0-31); Albumin Level 4.5 g/dL (3.5-5.0); Alkaline Phosphatase 99 U/L (39-117); Anion Gap 11 (12-20); Aspartate Amino Transferase 25 U/L (5-31); Bilirubin Direct 0.3 mg/dL (0.0-0.5); Bilirubin Total 0.6 mg/dL (0.0-1.0); Blood Urea Nitrogen 14 mg/dL (9-16); Calcium 9.4 mg/dL (8.4-10.2); Carbon Dioxide 27 mmol/L (22-29); Chloride 107 mmol/L (96-108); Creatinine Clr Calc Pharmacy 114.7; Estimated Glomerular Filt Rate > 60; Glucose Random 104 mg/dL (60-115); Magnesium 2.1 mg/dL (1.6-2.6); Potassium 3.6 mmol/L (3.3-5.1); Sodium 141 mmol/L (135-145); Total Protein 7.3 g/dL (6.5-8.0)
[2024-09-23] MEDS: Ketorolac Tromethamine 15 MG/ML VIAL IVPUSH (19:29)
--- NOTE | 2024-09-23 19:35 | PC.NURSE ---
pt refused morphine, agreeable to toradol. states she'd only take narcotics if i was in severe pain. aware.
[2024-09-23 20:30] VITALS: BP 129/88; PULSE 82; RESP 18; TEMP 36.7; O2SAT 100
== END 2024-09-23 20:30 | disposition home or self-care (01) ==
PROVIDERS: Physician Assistant; Emergency Provider Emergency Medicine; PCP Internal Medicine
DX: M54.50 Low back pain, unspecified (principal); R10.30 Lower abdominal pain, unspecified; Z79.899 Other long term (current) drug therapy
CPT/HCPCS: 36415; 74176; 80048; 80076; 81003; 81025; 83735; 85025; 96374; 99284; J1885

== ENCOUNTER → 2024-09-23 19:08 | Outpatient (BNV) | payer OTHER, SELFPAY | PROVIDERS: Emergency Provider Emergency Medicine; PCP Internal Medicine; Visit Provider Radiology Diagnostic Radiology | DX: N88.8 Other specified noninflammatory disorders of cervix uteri (principal) | CPT/HCPCS: 74176 ==